=== PATIENT | male | born 1950 | race Caucasian/White ===

== ENCOUNTER 2019-01-16 10:13 | Emergency (ER) | payer MEDICARE, BC ==
[~2019-01-16] VITALS: Ht 177.8 cm; Wt 106.4 kg
[~2019-01-16 10:13] MED LIST: AMLODIPINE2.5 MG PO; AMOXICILLIN500 MG PO; CHLORTHALID25 MG PO; GNC POTASSIUM595 MG PO; LISINOPRIL20 M1 PO; PROTONIX40 MG PO; SINGULAIR10 MG PO; WELCHOL625 MG PO; ZETIA10 MG PO
[2019-01-16] MEDS ORDERED: CLONIDINE HCL0.1 MG PO (10:42)
[2019-01-16] MEDS ORDERED: HYDRALAZINE HYD50 MG PO (10:44)
[2019-01-16] MEDS ORDERED: CALCIUM 600600 M1 PO (10:45)
[2019-01-16] MEDS ORDERED: TURMERI1 PO (10:46)
[2019-01-16] MEDS ORDERED: COQ10100 MG PO (10:46)
[2019-01-16] MEDS ORDERED: APRESOLINE25 MG/TAB PO (10:47)
[2019-01-16] MEDS ORDERED: NAPROXEN500 MG PO (10:47)
[2019-01-16] MEDS ORDERED: TOPROL XL25 MG PO (10:48)
[2019-01-16 11:29] LABS: HEMATOCRIT 40.1 % (39.0-50.0); HEMOGLOBIN 13.4 g/dl (14.0-18.0); IMMATURE GRANULOCYTES 0.1 % (0.0-5.0); MEAN CELL VOLUME 89.1 fL CALC (80.0-100.0); MEAN CORPUSCULAR HGB 29.8 pG CALC (26.0-32.0); MEAN CORPUSCULAR HGB CONC 33.4 g/L CALC (32.0-36.0); NEUT# 5.35 thou/uL (1.82-7.42); RED BLOOD COUNT 4.5 mill/uL (4.70-6.10); RED CELL DISTRI WIDTH 13.9 % (11.5-15.5)
[2019-01-16 11:32] LABS: URINE BILIRUBIN - DIPSTICK NEGATIVE (NEGATIVE); URINE BLOOD DIPSTICK NEGATIVE (NEGATIVE); URINE COLOR YELLOW; URINE GLUCOSE - DIPSTICK NEGATIVE (NEGATIVE); URINE KETONE NEGATIVE (NEGATIVE); URINE LEUK ESTERASE NEGATIVE (NEGATIVE); URINE NITRITE - DIPSTICK NEGATIVE (Negative); URINE PH 5.5 (4.5-8.0); URINE PROTEIN - DIPSTICK NEGATIVE (NEG-TRACE); URINE SPECIFIC GRAVITY 1.015; URINE UROBILINOGEN - DIPSTICK 0.2 E.U./dL (0.2)
[2019-01-16 11:44] LABS: ALBUMIN 4.6 g/dL (3.2-5.0); ALKALINE PHOSPHATASE 53 u/l (38-126); ANION GAP 13 (6-22 (CALC)); BILIRUBIN, TOTAL 1.3 mg/dL (0.0-1.4); BUN 23 mg/dL (8-23); BUN/CREATININE RATIO 20 (12-20 (CALC)); CARBON DIOXIDE 27 mmol/l (22-30); CHLORIDE 105 mmol/l (95-108); CREATININE 1.2 mg/dL (0.7-1.3); GFR 60 ML/MIN (>=60 (CALC)); GFR FOR AFR.AMER. > 60 ML/MIN (>=60 (CALC)); POTASSIUM 4.1 mmol/l (3.5-5.1); SGOT/AST 21 u/l (19-48); SODIUM 141 mmol/l (137-146); TOTAL PROTEIN 7.3 g/dL (6.3-8.2)
[2019-01-16] MEDS ORDERED: AMOXICILLIN/PO500 MG PO (11:51)
[2019-01-16] MEDS ORDERED: CLARITIN10 M1 PO (11:51)
[2019-01-16] MEDS ORDERED: FLOXIN OTIC0.3 % AD (11:51)
[2019-01-16 11:56] VITALS: BP 150/78
== END 2019-01-16 12:07 | disposition home or self-care (01) ==
LOC: ED 10:13
PROVIDERS: Emergency Medicine
DX: H66.91 Otitis media, unspecified, right ear (principal); J02.9 Acute pharyngitis, unspecified; I10 Essential (primary) hypertension